=== PATIENT | female | born 1995 | race African-American/Black ===

== ENCOUNTER 2016-09-13 12:55 | Emergency (ER) | payer OTHER ==
[2016-09-13 13:00] VITALS: BMI 31.8
[2016-09-13] MEDS ORDERED: ONDANSETRON 4 MG/2 ML VIAL IVPUSH ONE (17:13)
[2016-09-13] MEDS ORDERED: SODIUM CHLORIDE 1,000 ML IV STA (17:13)
[2016-09-13] MEDS ORDERED: PANTOPRAZOLE SODIUM 40 MG in SODIUM CHLORIDE 100 ML IVPB ONE (17:32)
[2016-09-13] MEDS ORDERED: ONDANSETRON 4 MG/2 ML VIAL ONE (17:35)
[2016-09-13] MEDS ORDERED: PANTOPRAZOLE SODIUM 100 ML IVPB ONE (17:35)
--- NOTE | 2016-09-13 17:40 | PDOC ---
History of Present Illness - General History Source: Patient Exam Limitations: No Limitations - History of Present Illness Travel History: No Initial Comments: 09/13/16 17:07 21-year-old female currently 4 months presents the ED with complaints of epigastric pain and vomiting intermittently since yesterday associated with upper abdominal pain now with headache since this afternoon. Patient states went to [place] yesterday secondary to left molar pain which she was told to take Tylenol for. Patient denies difficulty swallowing but does complain of nasal congestion, sore throat worsened at night, and cough worsened in the evening hours. Patient has no complaints of diarrhea, dysuria, fever, chills, lower abdominal pain, vaginal discharge, or low back pain. Timing/Duration: reports: intermittent Quality: reports: moderate, cramping Abdominal Pain Onset Location: reports: suprapubic (rt) Pain Radiation: reports: no radiation Activities at Onset: reports: none Aggravating Factors: improves with: None Alleviating Factors: improves with: None <Karen Stewart - Last Filed: 09/13/16 18:57> <Vihsal Castillo - Last Filed: 09/14/16 00:30> - General Chief Complaint: Nausea/Vomiting Stated Complaint: VOMITING Time Seen by Provider: 09/13/16 16:22 Past History - Reproductive History Is Patient Now?: Yes - Psycho/Social/Smoking Cessation Hx Suicidal Ideation: No Smoking History: Never smoked Information on smoking cessation initiated: No Patient Lives Alone: No Lives with/in: parents <Karen Stewart - Last Filed: 09/13/16 18:57> <Vishal Castillo - Last Filed: 09/14/16 00:30> - Past Medical History Allergies/Adverse Reactions: Allergies Allergy/AdvReac Type Severity Reaction Status Date / Time No Known Allergies Allergy Verified 09/13/16 13:00 Home Medications: Ambulatory Orders Vit/Iron Fumarate/FA [ Tablet] 1 each PO DAILY 09/13/16 Nitrofurantoin Monohyd/M-Cryst [Macrobid -] 100 mg PO BID #14 capsule 09/14/16 Review of Systems - Review of Systems Able to Perform ROS?: Yes Constitutional: No: Symptoms Reported HEENTM: Yes: Nose Congestion, Throat Pain Respiratory: Yes: Cough. No: Shortness of Breath Cardiac (ROS): No: Symptoms Reported ABD/GI: No: Symptoms Reported : No: Symptoms Reported Integumentary: No: Symptoms Reported Neurological: Yes: Headache (mild frontal). No: Symptoms reported Hematologic/Lymphatic: No: Symptoms Reported <Karen Stewart - Last Filed: 09/13/16 18:57> *Physical Exam - Vital Signs Last Vital Signs Temp Pulse Resp BP Pulse Ox 97.9 F 66 18 135/79 100 09/13/16 12:56 09/13/16 12:56 09/13/16 12:56 09/13/16 12:56 09/13/16 12:56 - Physical Exam General Appearance: Yes: Nourished, Appropriately Dressed. No: Apparent Distress HEENT: positive: EOMI, ANNE, Pharynx Normal, Nasal Congestion (boggy turbinates) , Rhinorrhea (beige bilateral). negative: Pale Conjunctivae, Sinus Tenderness Neck: positive: Supple Respiratory/Chest: positive: Lungs Clear, Normal Breath Sounds. negative: Respiratory Distress, Accessory Muscle Use Cardiovascular: positive: Regular Rhythm, Regular Rate. negative: Murmur Gastrointestinal/Abdominal: positive: Soft, Tenderness (epigastric) Musculoskeletal: negative: CVA Tenderness Extremity: positive: Normal Capillary Refill. negative: Pedal Edema Integumentary: positive: Normal Color, Warm, Moist <Karen Stewart - Last Filed: 09/13/16 18:57> - Vital Signs Last Vital Signs Temp Pulse Resp BP Pulse Ox 97.9 F 66 18 135/79 100 09/13/16 12:56 09/13/16 12:56 09/13/16 12:56 09/13/16 12:56 09/13/16 12:56 <Vishal Castillo - Last Filed: 09/14/16 00:30> Heart Score/ECG Review - ECG Impressions Normal ECG: Yes Non-specific ST Elevation: No Ischemic Changes: No Bradycardia: Yes Torsades neena Pointes: No WPW: No <Vishal Castillo - Last Filed: 09/14/16 00:30> ED Treatment Course - LABORATORY CBC & Chemistry Diagram: 09/13/16 17:15 09/13/16 17:15 <Karen Stewart - Last Filed: 09/13/16 18:57> - LABORATORY CBC & Chemistry Diagram: 09/13/16 17:15 09/13/16 17:15 - ADDITIONAL ORDERS Additional order review: Laboratory Results 09/13/16 17:15 Sodium 136 Potassium 3.7 Chloride 103 Carbon Dioxide 23 Anion Gap 10 BUN 7 Creatinine 0.5 L Creat Clearance w eGFR > 60 Random Glucose 71 L Calcium 8.7 Magnesium 2.0 Total Bilirubin 0.4 AST 14 L ALT 13 Alkaline Phosphatase 59 Total Protein 6.7 Albumin 3.3 L 09/13/16 17:15 Influenza Types A,B Antigen (AKUA) - Final Nasopharyngeal Swab - Final 09/13/16 17:15 RBC 3.98 MCV 97.2 H MCHC 34.1 RDW 14.1 MPV 7.8 Neutrophils % 75.2 Lymphocytes % 18.3 Monocytes % 5.9 Eosinophils % 0.3 Basophils % 0.3 - Medications Given in the ED: ED Medications Discontinued Medications Generic Name Dose Route Start Last Admin Trade Name Freq PRN Reason Stop Dose Admin Sodium Chloride 1,000 mls @ 1,000 mls/hr 09/13/16 17:13 09/13/16 17:32 Normal Saline - IV 09/13/16 18:12 1,000 mls/hr ASDIR STA Administration Pantoprazole Sodium 40 mg/ 100 mls @ 200 mls/hr 09/13/16 17:32 09/13/16 17:39 Sodium Chloride IVPB 09/13/16 18:01 200 mls/hr ONCE ONE Administration Ondansetron HCl 4 mg 09/13/16 17:13 09/13/16 17:39 Zofran Injection IVPUSH 09/13/16 17:14 4 mg ONCE ONE Administration <Vishal Castillo D - Last Filed: 09/14/16 00:30> Progress Note - Progress Note Progress Note: Patient c/o hemoptysis x1 with trouble breathing x 3 weeks. Having difficulty sleeping with severe chest pains. Would like to stay in hospital to make sure everything is okay. Plan: draw D-Dimer. ?? Chest X-ray. Patient reports feeling much better. EKG-Normal, Chest X-ray normal. D-Dimer elevated twice normal range which is normal in . Patient in room eating. 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 <Vishal Castillo D - Last Filed: 09/14/16 00:30> Medical Decision Making - Medical Decision Making 09/13/16 16:28 Pt with upper abdominal pain, nausea, headache, and cough for the past 2 days. Patient denies fever, chills, vaginal discharge, lower abdominal pain, or low back pain. Patient on exam had epigastric tenderness with otherwise a normal clinical exam. Patient will be checked for influenza. 09/13/16 17:51 Laboratory Tests 09/13/16 09/13/16 17:15 17:15 WBC 7.9 Hgb 13.2 Hct 38.7 Neutrophils % 75.2 AST Pending ALT Pending 09/13/16 18:57 Laboratory Tests 09/13/16 09/13/16 17:15 17:15 WBC 7.9 Hgb 13.2 Hct 38.7 Neutrophils % 75.2 Sodium 136 Potassium 3.7 Chloride 103 Carbon Dioxide 23 Anion Gap 10 BUN 7 Creatinine 0.5 L Random Glucose 71 L Calcium 8.7 Magnesium 2.0 Albumin 3.3 L influenza negative. patient's glucose 71. D5 N S ordered. Will check BGM prior to discharge <Karen Stewart - Last Filed: 09/13/16 18:57> *DC/Admit/Observation/Transfer <Karen Stewart - Last Filed: 09/13/16 18:57> - Discharge Dispostion Admit: No <Vishal Castillo - Last Filed: 09/14/16 00:30> Diagnosis at time of Disposition: Qualifiers: Weeks of gestation: 12 weeks Qualified Code(s): Z3A.12 - 12 weeks gestation of GERD (gastroesophageal reflux disease) Qualifiers: Esophagitis presence: without esophagitis Qualified Code(s): K21.9 - Gastro- esophageal reflux disease without esophagitis - Discharge Dispostion Disposition: HOME Condition at time of disposition: Improved - Prescriptions Prescriptions: Nitrofurantoin Monohyd/M-Cryst [Macrobid -] 100 mg PO BID #14 capsule - Patient Instructions Printed Discharge Instructions: A Survival Guide for Men, Medications and , Weight Gain During , DI for Urinary Tract Infection (UTI) Additional Instructions: FOLLOW UP WITH YOUR C D STILL OPERATOR THIS WEEK. CALL TO SCHEDULE APPOINTMENT. AVOID SODA, SUGARY FOODS, SPICY FOODS, GREASY FOODS BEST YOU CAN. DRINK PLENTY WATER. RETURN IF SYMPTOMS WORSEN OR ANY CONCERNS FOR FURTHER EVALUATION. Print Language: SETSWANA
[2016-09-13 17:45] LABS: BASOPHIL 0.3 % (0-2.0); EOSINOPHIL 0.3 % (0-4.5); MCH 33.1 pg (25.7-33.7); MCHC 34.1 g/dl (32.0-36.0); MEAN CELL VOLUME 97.2 fl (80-96); MEAN PLT VOLUME 7.8 fl (7.5-11.1); NEUTROPHILS 75.2 % (42.8-82.8); PLATELET COUNT 214 K/MM3 (134-434); RDW 14.1 % (11.6-15.6); WHITE BLOOD COUNT 7.9 K/mm3 (4.0-10.0)
[2016-09-13 18:10] LABS: ALBUMIN 3.3 g/dl (3.4-5.0); ANION GAP 10 (8-16); CALCIUM 8.7 mg/dL (8.5-10.1); CO2 23 mmol/L (21-32); CREATININE 0.5 mg/dL (0.55-1.02); GLUCOSE,RANDOM 71 mg/dL (74-106); SGOT/AST 14 U/L (15-37); SGPT/ALT 13 U/L (12-78)
[2016-09-13 18:12] LABS: ALK PHOS 59 U/L (45-117); BILIRUBIN,TOTAL 0.4 mg/dL (0.2-1.0); TOT PROT 6.7 g/dl (6.4-8.2)
[2016-09-13] MEDS ORDERED: DEXTROSE 5%-NORMAL SALINE 1,000 ML IV SCH (19:00)
[2016-09-13 20:21] LABS: URINE APPEARANCE SLCLOUDY; URINE BILIRUBIN NEGATIVE (NEGATIVE); URINE BLOOD NEGATIVE (NEGATIVE); URINE COLOR YELLOW; URINE GLUCOSE (UA) NEGATIVE (NEGATIVE); URINE KETONE 2+ (NEGATIVE); URINE NITRITE NEGATIVE (NEGATIVE); URINE UROBILINOGEN NEGATIVE E.U./dl (0.2-1.0)
[2016-09-13 20:38] LABS: URINE LEUK ESTERASE 3+ (NEGATIVE); URINE PROTEIN 1+ (NEGATIVE)
[2016-09-13 20:41] LABS: URINE BACTERIA RARE /hpf (NONE SEEN); URINE MUCUS MANY; URINE RBC 5 /hpf (0-3); URINE WBC 35 /hpf (3-5)
[2016-09-13 21:19] VITALS: TEMP 98.6
[2016-09-13 22:51] VITALS: BP 126/74; PULSE 60
[2016-09-14] MEDS ORDERED: NITROFURANTOIN MACROCRYSTAL 50 MG CAPSULE (FP) PO SCH (00:30)
[2016-09-14] MEDS ORDERED: NITROFURANTOIN MACROCRYSTAL 50 MG CAPSULE (FP) ONE (00:44)
--- NOTE | 2016-09-14 15:23 | EKG ---
Test Reason : Blood Pressure : / mmHG Vent. Rate : 056 BPM Atrial Rate : 056 BPM P-R Int : 186 ms QRS Dur : 100 ms QT Int : 448 ms P-R-T Axes : 042 052 046 degrees QTc Int : 432 ms SINUS BRADYCARDIA NONSPECIFIC T WAVE ABNORMALITY ABNORMAL ECG NO PREVIOUS ECGS AVAILABLE Confirmed by PENNY JERNIGAN MD ([id number]) on 09/14/2016 3:23:04 PM Referred By: Confirmed By:PENNY JERNIGAN MD
== END 2016-09-14 00:46 | disposition home or self-care (01) ==
LOC: JER 12:55
PROC: 3E0337Z Introduction of Electrolytic and Water Balance Substance into Peripheral Vein, Percutaneous Approach (ICD-10-PCS; principal; 2016-09-13)
PROC: 3E033GC Introduction of Other Therapeutic Substance into Peripheral Vein, Percutaneous Approach (ICD-10-PCS; 2016-09-13)
DX: O99.89 Other specified diseases and conditions complicating pregnancy, childbirth and the puerperium (principal); K21.9 Gastro-esophageal reflux disease without esophagitis; Z3A.12 12 weeks gestation of pregnancy
CPT/HCPCS: 36415; 71020-TC; 80053; 81003; 81015; 83735; 85025; 85379; 87086; 87804; 93005; 93010; 99285-25

== ENCOUNTER 2016-11-12 09:20 | Emergency (ER) | payer OTHER ==
[2016-11-12 09:39] VITALS: BP 126/75; PULSE 71; TEMP 98.1; BMI 34.9
--- NOTE | 2016-11-12 09:50 | PDOC ---
History of Present Illness - General History Source: Patient, Old Records Exam Limitations: No Limitations <Jayashree Hodge - Last Filed: 11/12/16 15:36> <Brian Minaya - Last Filed: 11/12/16 15:40> - General Chief Complaint: Chest Pain Stated Complaint: CHEST PAIN Time Seen by Provider: 11/12/16 09:46 - History of Present Illness Initial Comments: 11/12/16 11:04 The patient is a 21 year old female (A1;currently approximately 29 weeks ), with no significant past medical history, who presents to the emergency department with intermittent midsternal chest pain since this morning. The patient describes the pain as a sharp, stabbing pain and notes that the pain is exacerbated when sitting up and by movement. She reports that lying down somewhat alleviates the pain. She additionally reports some mild associated shortness of breath. Patient endorses that when she ambulates quickly the pain seems worse. The patient denies diaphoresis or palpitations. The patient denies fever, chills, headache, cough or any recent illnesses. The patient denies nausea, vomiting, diarrhea, abdominal pain or dysuria. The patient denies any abdominal cramping or any vaginal bleeding. The patient denies any lower extremity pain or swelling. Allergies: Penicillins, [place]. Past Surgical History: None reported. Family History: Diabetes, possible Blood Clots (paternal aunt). Social History: Non smoker. Denies alcohol or drug use. OBGYN: @ [facility] Perinatologist: Dr. Hernandez (Jayashree Hodge) Past History <Jayashree Hodge - Last Filed: 11/12/16 15:36> - Past Medical History Other medical history: 29 WEEKS - Psycho/Social/Smoking Cessation Hx Suicidal Ideation: No Smoking History: Never smoked Hx Alcohol Use: No Drug/Substance Use Hx: No <Brian Minaya - Last Filed: 11/12/16 15:40> - Past Medical History Allergies/Adverse Reactions: Allergies Allergy/AdvReac Type Severity Reaction Status Date / Time Penicillins Allergy Verified 11/12/16 09:39 Home Medications: Ambulatory Orders Vit/Iron Fumarate/FA [ Tablet] 1 each PO DAILY 09/13/16 Review of Systems - Review of Systems Able to Perform ROS?: Yes <Jayashree Hodge - Last Filed: 11/12/16 15:36> <Brian Minaya - Last Filed: 11/12/16 15:40> - Review of Systems Comments:: 11/12/16 11:05 CONSTITUTIONAL: No reported: Fever, Chills, Diaphoresis, Generalized Weakness, Malaise, Loss of Appetite HEENT: No reported: Rhinorrhea, Nasal Congestion, Throat Pain, Throat Swelling, Difficulty Swallowing, Mouth Swelling, Ear Pain, Eye Pain, Visual Changes CARDIOVASCULAR: Reported: +Chest Pain No reported: Syncope, Palpitations, Irregular Heart Rate, Lightheadedness, Peripheral Edema RESPIRATORY: Reported: +Shortness of Breath No reported: Cough, Orthopnea, Wheezing, Stridor, Hemoptysis GASTROINTESTINAL: No reported: Abdominal pain, Abdominal Distension, Nausea, Vomiting, Diarrhea, Constipation, Melena, Hematochezia GENITOURINARY: No reported: Dysuria, Frequency, Urgency, Hesitancy, Flank Pain, Genital Pain MUSCULOSKELETAL: No reported: Myalgia, Arthralgia, Joint Swelling, Back pain, Neck Pain SKIN: No reported: Rash, Itching, Pallor HEMATOLOGIC/IMMUNOLOGIC: No reported: Easy Bleeding, Easy Bruising, Lymphadenopathy, Frequent infections ENDOCRINE: No reported: Unexplained Weight Gain, Unexplained Weight Loss, Heat Intolerance , Cold Intolerance NEUROLOGIC: No reported: Headache, Focal Weakness, Paresthesias, Vertigo, Lightheadedness, Unsteady Gait, Seizure, Mental Status Changes, Incontinence PSYCHIATRIC: No reported: Anxiety, Depression (Jayashree Hodge) *Physical Exam <Jayashree Hodge - Last Filed: 11/12/16 15:36> <Brian Minaya - Last Filed: 11/12/16 15:40> - Vital Signs Last Vital Signs Temp Pulse Resp BP Pulse Ox 98.1 F 71 18 126/75 99 11/12/16 09:35 11/12/16 09:35 11/12/16 09:35 11/12/16 09:35 11/12/16 09:35 - Physical Exam Comments: 11/12/16 11:05 GENERAL: The patient is awake, alert, and fully oriented, nontoxic - in no acute distress. HEAD: Normocephalic, atraumatic. EYES: Extraocular movements intact, sclera anicteric, conjunctiva clear. ENT: Normal voice, moist mucous membranes. NECK: Normal range of motion, supple. LUNGS: Breath sounds equal, clear to auscultation bilaterally. No wheezes, no rhonchi, no rales. HEART: Regular rate and rhythm, without murmur, rub or gallop. ABDOMEN: Gravid abdomen. Soft, nontender, normoactive bowel sounds. No guarding , no rebound. No CVA tenderness EXTREMITIES: +1 non pitting edema, bilaterally. Negative Holmans sign. Normal range of motion. No clubbing or cyanosis. No cords, erythema, or tenderness. NEUROLOGICAL: No facial asymmetry. Normal speech. PSYCH: Normal mood, normal affect. SKIN: Warm, dry, normal turgor. (Jayashree Hodge) Heart Score/ECG Review <Jayashree Hodge - Last Filed: 11/12/16 15:36> <Brian Minaya - Last Filed: 11/12/16 15:40> - ECG Impressions Comment:: 11/12/16 10:58 Twelve-lead EKG was performed and reviewed by me. There is normal sinus rhythm with a normal rate. Rate of 69 The axis is normal. The intervals are normal. There is normal R wave progression There are no ST or T wave abnormalities. Impression: Normal twelve-lead EKG (Brian Minaya) ED Treatment Course - LABORATORY CBC & Chemistry Diagram: 11/12/16 10:20 11/12/16 10:20 <Jayashree Hodge - Last Filed: 11/12/16 15:36> - LABORATORY CBC & Chemistry Diagram: 11/12/16 10:20 11/12/16 10:20 <Brian Minaya - Last Filed: 11/12/16 15:40> - ADDITIONAL ORDERS Additional order review: Laboratory Results 11/12/16 11/12/16 11/12/16 10:20 10:20 10:20 D-Dimer 939 H Sodium 136 Potassium 4.0 Chloride 103 Carbon Dioxide 25 Anion Gap 8 BUN 8 Creatinine 0.5 L Creat Clearance w eGFR > 60 Random Glucose 70 L Calcium 8.9 Total Bilirubin 0.2 D AST 16 ALT 10 L D Alkaline Phosphatase 69 Creatine Kinase 144 Troponin I < 0.02 B-Natriuretic Peptide 83.87 Total Protein 6.2 L Albumin 3.0 L Urine Color Yellow Urine Appearance Turbid Urine pH 8.0 D Ur Specific [place] 1.014 Urine Protein Negative Urine Glucose (UA) Negative Urine Ketones Negative Urine Blood Negative Urine Nitrite Negative Urine Bilirubin Negative Urine Urobilinogen Negative Ur Leukocyte Esterase Trace H D Urine RBC 4 Urine WBC 13 Ur Epithelial Cells Rare Urine Mucus Rare Urine HCG, Qual Positive 11/12/16 10:20 RBC 3.78 MCV 99.8 H MCHC 33.7 RDW 14.1 MPV 8.1 Neutrophils % 69.6 Lymphocytes % 20.7 Monocytes % 8.8 Eosinophils % 0.5 Basophils % 0.4 - RADIOLOGY Radiology Studies Ordered: Category Date Time Status CHEST CTA [CT] Stat CT Scan 11/12/16 11:37 Completed Medical Decision Making <Jayashree Hodge - Last Filed: 11/12/16 15:36> <Brian Minaya - Last Filed: 11/12/16 15:40> - Medical Decision Making 11/12/16 15:36 EXAM: CT/CHEST CTA Reviewed By: Dr. Silas Ashraf IMPRESSION: Limited CTA of the chest with no evidence of pulmonary embolism or acute pathology. (Jayashree Hodge) 11/12/16 10:01 21F A1 at approx 29weeks gestation presents with sudden onset of chest pain this morning associated with intermittent sob, without associated leg swelling. Pt does have possible history of aunt on fathers side with blood clot. differential for the pts symptoms includes PE, although rare, pt is . pts vitals are normal which is reasssuring. will send screening d-dimer - if positiv will consider further imaging. will obtain ekg will reassess A portion of this note was documented by scribe services under my direction. I have reviewed the details of the note, within reason, and agree with the documentation with the following case summary and management plan written by me 11/12/16 11:32 dimer elevated to 900s case dw dr. Krishna - recommend CTA vs. VQ scan will obtain CTA - had extensive discussion with the ptient regarding risks and benefiit with the patient of radiation exposure to the fetus - she agrees to obtaining th eCTA. 11/12/16 15:31 pts CTA is negative for PE. 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 her pain is substantially improved, denies any sob. The patient's vitals were unremarkable return precautions were discussed I discussed the physical exam findings, ancillary test results and final diagnoses with the patient. I answered all of the patient's questions. The patient was satisfied with the care received and felt comfortable with the discharge plan and treatment plan. The patient will call their primary care physician within 24 hours to arrange follow-up and will return to the Emergency Department with any new, persistent or worsening symptoms. (Brian Minaya) *DC/Admit/Observation/Transfer <Jayashree Hodge - Last Filed: 11/12/16 15:36> - Discharge Dispostion Admit: No <Brian Minaya - Last Filed: 11/12/16 15:40> Diagnosis at time of Disposition: Chest pain Qualifiers: Chest pain type: unspecified Qualified Code(s): R07.9 - Chest pain, unspecified Qualifiers: Weeks of gestation: 29 weeks Qualified Code(s): Z3A.29 - 29 weeks gestation of - Discharge Dispostion Disposition: HOME Condition at time of disposition: Improved - Referrals Referrals: Tarik Cooley [Primary Care Provider] - - Patient Instructions Printed Discharge Instructions: DI for Atypical Chest Pain Additional Instructions: Return to the emergency department immediately with ANY new, persistent or worsening symptoms. You MUST call and follow up with your doctor tomorrow for further evaluation of your symptoms. Results were discussed with you. Please make sure your doctor reviews the results of your emergency evaluation. If you had any xrays during your visit, it was read preliminarily by myself, a Radiologist will review it and if there are any additional findings we will call you. Print Language: BURMESE - Attestations Scribe Attestion: 11/12/16 10:10 Documentation prepared by Jayashree Hodge, acting as medical records assistant for Brian Minaya MD. (Jayashree Hodge)
[2016-11-12 10:40] LABS: BASOPHIL 0.4 % (0-2.0); EOSINOPHIL 0.5 % (0-4.5); MCH 33.6 pg (25.7-33.7); MCHC 33.7 g/dl (32.0-36.0); MEAN CELL VOLUME 99.8 fl (80-96); MEAN PLT VOLUME 8.1 fl (7.5-11.1); NEUTROPHILS 69.6 % (42.8-82.8); PLATELET COUNT 159 K/MM3 (134-434); RDW 14.1 % (11.6-15.6); WHITE BLOOD COUNT 8.2 K/mm3 (4.0-10.0)
[2016-11-12 10:43] LABS: URINE APPEARANCE TURBID; URINE BILIRUBIN NEGATIVE (NEGATIVE); URINE BLOOD NEGATIVE (NEGATIVE); URINE COLOR YELLOW; URINE GLUCOSE (UA) NEGATIVE (NEGATIVE); URINE KETONE NEGATIVE (NEGATIVE); URINE NITRITE NEGATIVE (NEGATIVE); URINE PROTEIN NEGATIVE (NEGATIVE); URINE UROBILINOGEN NEGATIVE E.U./dl (0.2-1.0)
[2016-11-12 11:04] LABS: ANION GAP 8 (8-16); BILIRUBIN,TOTAL 0.2 mg/dL (0.2-1.0); CALCIUM 8.9 mg/dL (8.5-10.1); CO2 25 mmol/L (21-32); CREATININE 0.5 mg/dL (0.55-1.02); GLUCOSE,RANDOM 70 mg/dL (74-106); SGOT/AST 16 U/L (15-37); SGPT/ALT 10 U/L (12-78)
[2016-11-12 11:05] LABS: URINE LEUK ESTERASE TRACE (NEGATIVE)
[2016-11-12 11:09] LABS: ALK PHOS 69 U/L (45-117); TOT PROT 6.2 g/dl (6.4-8.2); TROPONIN I < 0.02 ng/ml (0.00-0.05)
[2016-11-12 11:35] LABS: URINE MUCUS RARE; URINE RBC 4 /hpf (0-3); URINE WBC 13 /hpf (3-5)
--- NOTE | 2016-11-13 17:09 | EKG ---
Test Reason : Blood Pressure : / mmHG Vent. Rate : 069 BPM Atrial Rate : 069 BPM P-R Int : 184 ms QRS Dur : 090 ms QT Int : 400 ms P-R-T Axes : 026 031 029 degrees QTc Int : 428 ms NORMAL SINUS RHYTHM NORMAL ECG WHEN COMPARED WITH ECG OF 13-SEP-2016 23:56, NO SIGNIFICANT CHANGE WAS FOUND Confirmed by JOSE RODRIGUEZ MD ([id number]) on 11/13/2016 5:09:28 PM Referred By: Confirmed By:JOSE RODRIGUEZ MD
== END 2016-11-12 15:55 | disposition home or self-care (01) ==
LOC: JER 09:20
DX: O99.89 Other specified diseases and conditions complicating pregnancy, childbirth and the puerperium (principal); R07.89 Other chest pain; Z3A.29 29 weeks gestation of pregnancy
CPT/HCPCS: 36415; 71275-TC; 80053; 81003; 81015; 82550; 83880; 84484; 84703; 85025; 85379; 93005; 93010; 99281-25

== ENCOUNTER 2017-02-03 09:20 | Inpatient (IN) | payer OTHER ==
[2017-02-03] MEDS ORDERED: PROMETHAZINE HCL 25 MG/1 ML VIAL IVPUSH ONE (10:18)
[2017-02-03] MEDS ORDERED: DEXTROSE 5%-LACTATED RINGERS 1,000 ML IV SCH (10:30)
--- NOTE | 2017-02-03 10:35 | HP ---
Past Medical History - Primary Care Physician PCP:: Laura Kong - Admission Chief Complaint: 22 yrs , 40,4 weeks by dates & sono is admitted for induction of labor History of Present Illness: PNC at [facility] . last visit in 10/2016. 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 No : HTN, Murmur Pulmonary: No: Asthma Gastrointestinal: Yes: Constipation. No: Gastritis Hepatobiliary: No: Hepatitis B Renal/: No: UTI ...: 3 ...Para: 1 ...Term: 1 (10/19/12 7'14" [facility]) ...Induced : 1 ...LMP: 04/25/16 ... Weeks Gestation by Dates: 40.4 ...EDC by Dates: 01/30/17 ...EDC by Sono: 01/30/17 Heme/Onc: No: Anemia Infectious Disease: Yes: STD's (h/o chlamydia pos in 05/2016) Psych: No: Addictions, Anxiety, Depression, Panic Endocrine: No: Hyperthyroidism, Hypothyroidism - Past Surgical History Past Surgical History: Yes: None Hx Myomectomy: No Hx Transabdominal Cerclage: No - Smoking History Smoking history: Never smoked - Alcohol/Substance Use Hx Alcohol Use: No History of Substance Use: reports: Marijuana Date of Last Use: 11/13/16 Home Medications - Allergies Allergies/Adverse Reactions: Allergies Allergy/AdvReac Type Severity Reaction Status Date / Time deloris Allergy Severe Verified 01/30/17 15:14 Penicillins Allergy Severe Verified 01/30/17 15:14 - Home Medications Home Medications: Ambulatory Orders Vit/Iron Fumarate/FA [ Tablet] 1 each PO DAILY 09/13/16 Physical Exam - Maternity Constitutional: Yes: Well Nourished, No Distress Eyes: Yes: WNL HENT: Yes: WNL, Normocephalic Neck: Yes: WNL Cardiovascular: Yes: WNL Lungs: Clear to auscultation Breast(s): Yes: WNL - Abdominal Exam/OB Fundal Height: 40 Number of Fetuses: Single Presentation: Vertex Contractions: Yes Regularity: Irregular Intensity: Unaware Monitor Mode: External Heart Rate (range): 130-140 Heart Rate Location: [facility] Category: I Accelerations: Uniform Decelerations: None - Vaginal Exam/OB Vaginal Bleediing: No Speculum Exam: No Dilatation (cm): 1-2 Effacement (%): 60 Amniotic Membrane Status: Intact Presentation: Vertex/Position (exam at 10.00AM) Station: -3 - Physical Exam Musculoskeletal: Yes: WNL Extremities: Yes: WNL. No: Calf Tenderness Edema: Yes Edema: LLE: 1+, RLE: 1+ Integumentary: Yes: Tattoos ...Motor Strength: WNL Psychiatric: Yes: WNL, Alert, Oriented - Labs Lab Results: Laboratory Tests 02/03/17 02/03/17 02/03/17 10:15 10:15 10:40 WBC 6.0 Hgb 12.6 Plt Count 154 Neutrophils % 64.5 Lymphocytes % 22.1 INR PTT (Actin FS) Sodium Potassium Chloride Anion Gap BUN Creatinine Random Glucose Urine Protein Negative Urine RBC 2 Urine WBC 10 U Marijuana (THC) Screen Positive Blood Type 02/03/17 02/03/17 02/03/17 10:40 10:40 10:40 WBC Hgb Plt Count Neutrophils % Lymphocytes % INR 1.00 PTT (Actin FS) 25.9 L Sodium 139 Potassium 3.7 Chloride 107 Anion Gap 11 BUN 5 L D Creatinine 0.6 Random Glucose 73 L Urine Protein Urine RBC Urine WBC U Marijuana (THC) Screen Blood Type O POSITIVE Problem List - Problems (1) Post-term , 40-42 weeks of gestation Code(s): O48.0 - POST-TERM (2) Elective induction of labor planned Code(s): TMS8831 - (3) GBS screening not performed Code(s): EEM4864 - Assessment/Plan 22 yrs , 40 4 weeks , non compliant, GBS unknown , for induction of labor Plan cervidil induction , Inserted at 10.50 AM Trial of labor for vaginal delivery
[2017-02-03 10:49] LABS: BASOPHIL 0.4 % (0-2.0); EOSINOPHIL 0.9 % (0-4.5); MCH 33.8 pg (25.7-33.7); MCHC 34.7 g/dl (32.0-36.0); MEAN CELL VOLUME 97.2 fl (80-96); MEAN PLT VOLUME 7.9 fl (7.5-11.1); NEUTROPHILS 64.5 % (42.8-82.8); PLATELET COUNT 154 K/MM3 (134-434); RDW 14.2 % (11.6-15.6)
[2017-02-03] MEDS ORDERED: SODIUM PHOSPHATE/NA BIPHOS 133 ML ENEMA PR ONE (10:51)
[2017-02-03] MEDS ORDERED: DINOPROSTONE 10 MG VAGINAL SUPPOSITORY VG ONE (11:00)
[2017-02-03 11:02] VITALS: BMI 31.3
[2017-02-03 11:05] LABS: ACTIVATED PTT 25.9 SECONDS (26.9-34.4)
[2017-02-03 11:15] LABS: CALCIUM 8.6 mg/dL (8.5-10.1); CREATININE 0.6 mg/dL (0.55-1.02)
[2017-02-03 11:22] LABS: URINE APPEARANCE CLOUDY; URINE BILIRUBIN NEGATIVE (NEGATIVE); URINE BLOOD NEGATIVE (NEGATIVE); URINE COLOR YELLOW; URINE GLUCOSE (UA) NEGATIVE (NEGATIVE); URINE KETONE NEGATIVE (NEGATIVE); URINE NITRITE NEGATIVE (NEGATIVE); URINE PROTEIN NEGATIVE (NEGATIVE); URINE UROBILINOGEN NEGATIVE E.U./dl (0.2-1.0)
[2017-02-03 11:28] LABS: URINE LEUK ESTERASE TRACE (NEGATIVE)
[2017-02-03 11:31] LABS: URINE BACTERIA RARE /hpf (NONE SEEN); URINE MUCUS FEW; URINE RBC 2 /hpf (0-3); URINE WBC 10 /hpf (3-5)
[2017-02-03 12:00] LABS: URINE MARIJUANA THC POSITIVE ng/ml (CUTOFF=50)
[2017-02-03] MEDS ORDERED: BUTORPHANOL TARTRATE 1 MG/ML VIAL IVPB ONE (12:00)
[2017-02-03] MEDS ORDERED: CLINDAMYCIN 900 MG PREMIX IVPB 50 ML IVPB ONE (12:26)
[2017-02-03] MEDS: CLINDAMYCIN 600MG PREMIX IVPB 50 ML IVPB SCH ×3 (12:35→18:30)
[2017-02-03 17:19] LABS: HIV 1 & 2 AB NEGATIVE; HIV 1 AGp24 NEGATIVE
--- NOTE | 2017-02-03 22:38 | PN ---
Progress Note, Labor Vaginal Exam #1 Labor Exam Date: 02/03/17 Labor Exam Time: 22:25 Heart Rate (range): 130- 140 Dilatation: 8 Effacement (%): 90 Amniotic Membrane Status: Ruptured (AROM clear) Presentation: Vertex/Position Station: -1 Remarks: uC q2-3 min. FHR cat-1 21.50 hr cervidil removed 22.00 hr stadol 2 mg + phenrgan 25 mg iv given Selected Entries 02/03/17 21:00 Temperature 98.8 F Pulse Rate 66 Blood Pressure 114/68 pt received 2 doses of clindamycin due to unknown GBS Vaginal Exam #2 Labor Exam Date: 02/03/17 Labor Exam Time: 23:00 Heart Rate (range): 130 Dilatation: 10 Effacement (%): 100 Amniotic Membrane Status: Ruptured Presentation: Vertex/Position Station: +2 Remarks: uc q2-3 min fhr cat-1 pt pushing Selected Entries 02/03/17 22:00 Temperature 98.3 F Pulse Rate 89 Blood Pressure 129/82
[2017-02-03] MEDS: METHYLERGONOVINE MALEATE 0.2 MG/1 ML AMP IM PRN (23:40)
[2017-02-04] MEDS ORDERED: BENZOCAINE 20% 57 GM BOTTLE TP PRN (00:59)
[2017-02-04] MEDS ORDERED: oxyCODONE HCL 5 MG TABLET PO PRN (00:59)
[2017-02-04] MEDS ORDERED: BENZOCAINE 28 GM HEMORRHOIDAL OINTMENT TP PRN (00:59)
[2017-02-04] MEDS ORDERED: WITCH HAZEL 50% (TUCKS) 40 PAD/JAR PAD TP PRN (00:59)
[2017-02-04] MEDS ORDERED: BISACODYL 10 MG SUPP.RECT RC PRN (00:59)
[2017-02-04] MEDS ORDERED: D5W-LR W/ 20 UNITS OXYTOCIN 1,000 ML IV SCH (01:00)
--- NOTE | 2017-02-04 01:06 | PN ---
Delivery - Delivery Vaginal Delivery: No Problems, Spontaneous (uterus post delivery atonic , bimanual massage given bladder cathetrized, meu done blood clots removed, iM Methergine 0.2 mg im given at 23.40 hr 02/03/17) Type of Anesthesia: None Episiotomy/Laceration: None EBL (cc): 400 (st cath 250 ml urine ) Delivery, Single - Stages of Labor Date 1st Stage Initiatied: 02/03/17 Time 1st Stage Initiated: 19:00 Date 2nd Stage Initiated: 02/03/17 Time 2nd Stage Initiated: 23:00 Date of Delivery: 02/03/17 Time of Delivery: 23:23 Time Placenta Delivered: 23:25 Placenta: Yes: Spontaneous, Uterine Exploration - Condition of Infant Chapter Relations Administrator/Certified Neurodiagnostic Technologist Present: No Infant Gender: Male Weight: 7 lb 7 oz Position: Right, OA Total Hours ROM (Hrs/Mins): 1h2m - 1 Minute Total Score: 9 5 Minutes Total Score: 9 - Feeding Plan Initial Plan: Elected not to breastfeed exclusively throughout hospitalization Remarks - Remarks Remarks: 22 yrs , 40.4 weeks iup, GBS unknown, [facility] , non compliant Urine drug screen positive for Marijuana Cervidil induction started 02/03/17 at 10.30 AM stadol 2 gm + Phenergan 25 mg im given for labor analgesia . 2 doses of clindamycin received for Gbs prophylaxis Intrapartum course uneventful
[2017-02-04] MEDS: ACETAMINOPHEN 325 MG TABLET (FP) PO PRN (01:33)
[2017-02-04] MEDS: IBUPROFEN 600 MG TABLET (FP) PO PRN (01:34)
[2017-02-04] MEDS: CLINDAMYCIN 600MG PREMIX IVPB 50 ML IVPB SCH (02:07)
[2017-02-04] MEDS: METHYLERGONOVINE MALEATE 0.2 MG/1 ML AMP IM PRN (03:15)
[2017-02-04 08:07] LABS: BASOPHIL 0.3 % (0-2.0); EOSINOPHIL 0.3 % (0-4.5); MCH 33.5 pg (25.7-33.7); MCHC 34.2 g/dl (32.0-36.0); MEAN CELL VOLUME 97.8 fl (80-96); MEAN PLT VOLUME 8.9 fl (7.5-11.1); NEUTROPHILS 79.3 % (42.8-82.8); PLATELET COUNT 151 K/MM3 (134-434); RDW 14.1 % (11.6-15.6); WHITE BLOOD COUNT 12.8 K/mm3 (4.0-10.0)
--- NOTE | 2017-02-04 08:42 | PN ---
Post Progress Note - Subjective Subjective: no complains Post Day: 1 Type of Delivery: Vital Signs: Vital Signs Temperature 98.7 F 02/04/17 05:44 Pulse Rate 75 02/04/17 05:44 Respiratory Rate 18 02/04/17 05:44 Blood Pressure 128/60 02/04/17 05:44 O2 Sat by Pulse Oximetry (%) 100 02/04/17 00:30 Breast Exam: Yes: Soft, Other (bottle feeding ). No: Engorged Uterus: Yes: Fundus Firm, Fundus below umbilicus, Non-tender Lochia: Yes: Rubra Lochia, amount: Moderate Extremities: Yes: Calves non-tender, Edema Perineum: Yes: Intact Activity: Ambulating - Labs Labs: CBC WBC 12.8 K/mm3 (4.0-10.0) H D 02/04/17 06:00 RBC 4.02 M/mm3 (3.60-5.2) 02/04/17 06:00 Hgb 13.5 GM/dL (10.7-15.3) 02/04/17 06:00 Hct 39.3 % (32.4-45.2) 02/04/17 06:00 MCV 97.8 fl (80-96) H 02/04/17 06:00 MCHC 34.2 g/dl (32.0-36.0) 02/04/17 06:00 RDW 14.1 % (11.6-15.6) 02/04/17 06:00 Plt Count 151 K/MM3 (134-434) 02/04/17 06:00 MPV 8.9 fl (7.5-11.1) D 02/04/17 06:00 Neutrophils % 79.3 % (42.8-82.8) D 02/04/17 06:00 Lymphocytes % 11.2 % (8-40) D 02/04/17 06:00 Monocytes % 8.9 % (3.8-10.2) 02/04/17 06:00 Eosinophils % 0.3 % (0-4.5) 02/04/17 06:00 Basophils % 0.3 % (0-2.0) 02/04/17 06:00 Problem List - Problems (1) Post-term , 40-42 weeks of gestation Code(s): O48.0 - POST-TERM (2) Elective induction of labor planned Code(s): MOT1943 - (3) GBS screening not performed Code(s): JUO1604 - Assessment/Plan stable Plan ct pp care discharge tomorrow.
[2017-02-04] MEDS: FERROUS SO4 325 MG TABLET (FP) PO SCH ×2 (09:59→18:00)
[2017-02-04] MEDS: PRENATAL VITAMINS W/ FOLIC ACID TABLET (FP) PO SCH (09:59)
[2017-02-04 18:42] VITALS: PULSE 84
[2017-02-05] MEDS: ACETAMINOPHEN 325 MG TABLET (FP) PO PRN (00:32)
[2017-02-05] MEDS: IBUPROFEN 600 MG TABLET (FP) PO PRN (00:32)
--- NOTE | 2017-02-05 07:06 | PN ---
Post Progress Note Post Day: 2 Type of Delivery: Vital Signs: Vital Signs Temperature 98.2 F 02/04/17 21:06 Pulse Rate 84 02/04/17 21:06 Respiratory Rate 20 02/04/17 21:06 Blood Pressure 120/76 02/04/17 21:06 O2 Sat by Pulse Oximetry (%) 100 02/04/17 00:30 Breast Exam: Yes: Soft Uterus: Yes: Fundus Firm Abdomen/GI: Yes: Abdomen soft Lochia: Yes: Rubra Lochia, amount: Small Extremities: Yes: Calves non-tender Perineum: Yes: Intact Activity: Ambulating - Labs Labs: CBC WBC 12.8 K/mm3 (4.0-10.0) H D 02/04/17 06:00 RBC 4.02 M/mm3 (3.60-5.2) 02/04/17 06:00 Hgb 13.5 GM/dL (10.7-15.3) 02/04/17 06:00 Hct 39.3 % (32.4-45.2) 02/04/17 06:00 MCV 97.8 fl (80-96) H 02/04/17 06:00 MCHC 34.2 g/dl (32.0-36.0) 02/04/17 06:00 RDW 14.1 % (11.6-15.6) 02/04/17 06:00 Plt Count 151 K/MM3 (134-434) 02/04/17 06:00 MPV 8.9 fl (7.5-11.1) D 02/04/17 06:00 Neutrophils % 79.3 % (42.8-82.8) D 02/04/17 06:00 Lymphocytes % 11.2 % (8-40) D 02/04/17 06:00 Monocytes % 8.9 % (3.8-10.2) 02/04/17 06:00 Eosinophils % 0.3 % (0-4.5) 02/04/17 06:00 Basophils % 0.3 % (0-2.0) 02/04/17 06:00 Assessment/Plan doing well no issues dc home today
[2017-02-05] MEDS ORDERED: DIPHTH,PERTUSS(ACELL),TET 0.5 ML DISP.SYRIN IM ONE (10:00)
[2017-02-05] MEDS: FERROUS SO4 325 MG TABLET (FP) PO SCH (11:03)
[2017-02-05] MEDS: PRENATAL VITAMINS W/ FOLIC ACID TABLET (FP) PO SCH (11:03)
[2017-02-05 11:19] VITALS: BP 124/76; TEMP 98.3
--- NOTE | 2017-02-05 18:12 | DS ---
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 Vital Signs: Vital Signs Temperature 98.3 F 02/05/17 10:00 Pulse Rate 84 02/05/17 10:00 Respiratory Rate 20 02/05/17 10:00 Blood Pressure 124/76 02/05/17 10:00 O2 Sat by Pulse Oximetry (%) 100 02/04/17 00:30 Constitutional: Yes: Well Nourished Eyes: Yes: WNL HENT: Yes: WNL Neck: Yes: WNL Cardiovascular: Yes: WNL Respiratory: Yes: WNL Gastrointestinal: Yes: WNL, Normal Bowel Sounds ...Rectal Exam: Yes: WNL Renal/: Yes: WNL Pelvis: Yes: WNL External Genitalia: Yes: Normal ....Post : Yes: Uterus firm, Uterus non-tender, Moderate lochia rubra ( perineum intact) Breast(s): Yes: WNL (Bf) Musculoskeletal: Yes: WNL Extremities: Yes: WNL. No: Calf Tenderness Edema: Yes Edema: LLE: 1+, RLE: 1+ Integumentary: Yes: Tattoos Neurological: Yes: WNL, Alert, Oriented ...Motor Strength: WNL Psychiatric: Yes: WNL, Alert, Oriented Labs: CBC, BMP 02/04/17 06:00 02/03/17 10:40 Delivery - Delivery Vaginal Delivery: No Problems, Spontaneous (uterus post delivery atonic , bimanual massage given bladder cathetrized, meu done blood clots removed, iM Methergine 0.2 mg im given at 23.40 hr 02/03/17) Type of Anesthesia: None Episiotomy/Laceration: None EBL (cc): 400 (st cath 250 ml urine ) Delivery, Single - Stages of Labor Date 1st Stage Initiatied: 02/03/17 Time 1st Stage Initiated: 19:00 Date 2nd Stage Initiated: 02/03/17 Time 2nd Stage Initiated: 23:00 Date of Delivery: 02/03/17 Time of Delivery: 23:23 Time Placenta Delivered: 23:25 Placenta: Yes: Spontaneous, Uterine Exploration - Condition of Infant Scheduling Coordinator/Shaving Machine Operator Present: No Infant Gender: Male Weight: 7 lb 7 oz Position: Right, OA Total Hours ROM (Hrs/Mins): 1h2m - 1 Minute Total Score: 9 5 Minutes Total Score: 9 - Feeding Plan Initial Plan: Elected not to breastfeed exclusively throughout hospitalization Remarks - Remarks Remarks: 22 yrs , 40.4 weeks iup, GBS unknown, [facility] , non compliant Urine drug screen positive for Marijuana Cervidil induction started 02/03/17 at 10.30 AM stadol 2 gm + Phenergan 25 mg im given for labor analgesia . 2 doses of clindamycin received for Gbs prophylaxis Intrapartum course uneventful stable plan discharge on 02/05/17 Discharge Summary Reason For Visit: INDUCTION OF LABOR Current Active Problems Elective induction of labor planned (Acute) GBS screening not performed (Acute) Normal spontaneous vaginal delivery (Acute) Post-term , 40-42 weeks of gestation (Acute) Substance abuse affecting , antepartum (Acute) Condition: Stable - Instructions Diet, Activity, Other Instructions: Post Instructions DIET: Continue good diet high in protein, calcium, and iron rich foods. Drink at least eight (8) glasses of water daily in addition to other fluids. Ct Regular diet MEDICATIONS: Continue vitamins and iron as previously directed. Motrin and Tylenol may be taken for minor discomfort. ACTIVITY: Mild to moderate exercise may be started in two (2) weeks. Take frequent rest periods. Resume normal activity after six (6) week check up. WOUND CARE OF OPERATIVE SITE: Continue use of perineal bottle until vaginal discharge stops. Keep area clean. Shower daily. Keep abdominal wound dry. Report any drainage or redness to physician. Tub baths, tampons and douches are not permitted for [address] Breast feeding & or Bottle feeding BREAST CARE: (For those that are not breast feeding): If engorgement occurs: Wear tight fitting bra. Take Tylenol or Motrin for pain. Apply cold packs (ice in bags to each breast ) FAMILY PLANNING: There are many control alternatives to pursue and they should be discussed at your first office visit. You may resume sexual activity after your six (6) week check up. (Remember, breast feeding is not a contraceptive) NEXT PHYSICIAN APPOINTMENT: Be certain to call for a six (6) week appointment, unless otherwise directed. Call Clinic or got to Emergency Dept if you have any of the following: Heavy vaginal bleeding Painful urination Leg pain Unusual odor noted to vaginal bleeding High fever Red streaking noted on breast Referrals: Laura Kong MD [Staff Physician] - Disposition: HOME - Home Medications Comprehensive Discharge Medication List: Ambulatory Orders Vit/Iron Fumarate/FA [ Tablet] 1 each PO DAILY 09/13/16 Acetaminophen [Tylenol .Regular Strength -] 650 mg PO Q3H PRN #0 tablet Ibuprofen [Motrin -] 200 mg PO Q4H PRN #0 tablet 02/04/17 Vitamins ([facility]) - 1 tab PO DAILY tablet 02/04/17
[2017-02-05] MEDS ORDERED: SENNOSIDES/DOCUSATE COMBO (SENNA PLUS) TABLET (UD) PO PRN (22:00)
== END 2017-02-05 12:30 | disposition home or self-care (01) | DRG 560 ==
LOC: JDEL 09:20 → JLDR 09:50 → J3W 02-04 01:10
PROVIDERS: ADMIT Obstetrics & Gynecology; ATTEND Obstetrics & Gynecology
PROC: 10E0XZZ Delivery of Products of Conception, External Approach (ICD-10-PCS; principal; 2017-02-03)
PROC: 3E0P7GC Introduction of Other Therapeutic Substance into Female Reproductive, Via Natural or Artificial Opening (ICD-10-PCS; 2017-02-03)
DX: O48.0 Post-term pregnancy (principal); Z3A.40 40 weeks gestation of pregnancy; O99.324 Drug use complicating childbirth; F12.10 Cannabis abuse, uncomplicated; Z37.0 Single live birth
CPT/HCPCS: 36415; 59409; 80048; 80307; 81003; 81015; 85025; 85610; 85730; 86593; 86850; 86900; 86901; 87389; 90715

== ENCOUNTER 2021-12-04 09:42 | Emergency (ER) | payer OTHER ==
[2021-12-04 10:10] VITALS: BP 95/65; PULSE 77; TEMP 98.3; BMI 26.6
[2021-12-04] MEDS ORDERED: ONDANSETRON 4 MG/2 ML VIAL IVPUSH ONE (10:47)
[2021-12-04] MEDS ORDERED: SODIUM CHLORIDE 0.9% 500 ML INFUS.BAG IV ONE ×2 (10:47)
[2021-12-04] MEDS ORDERED: ONDANSETRON 4 MG/2 ML VIAL ONE (12:15)
[2021-12-04] MEDS ORDERED: ACETAMINOPHEN 1000 MG/100 ML BAG IVPB ONE (12:27)
[2021-12-04] MEDS ORDERED: ACETAMINOPHEN INJECTION 100 ML IVPB ONE (12:34)
[2021-12-04 12:48] LABS: EPI CELLS 31 /uL (0-25.1); HYALINE CASTS 1 /uL (0-3.1); URINE APPEARANCE CLEAR; URINE BACTERIA 536 /uL (0-1359); URINE BILIRUBIN NEGATIVE (NEGATIVE); URINE COLOR DK YELLOW; URINE GLUCOSE (UA) NEGATIVE (NEGATIVE); URINE KETONE 3+ (NEGATIVE); URINE LEUK ESTERASE NEGATIVE (NEGATIVE); URINE NITRITE NEGATIVE (NEGATIVE); URINE PROTEIN 1+ (NEGATIVE); URINE RBC 16 /uL (0-23.9); URINE WBC 9 /uL (0-25.8)
[2021-12-04 12:50] LABS: BASO % 0.5 % (0-2.0); HEMATOCRIT 41.3 % (32.4-45.2); HEMOGLOBIN 14.3 GM/dL (10.7-15.3); LYMPH % 12.1 % (8-40); MCH 33.6 pg (25.7-33.7); MCHC 34.6 g/dl (32.0-36.0); MEAN CELL VOLUME 97.2 fl (80-96); MEAN PLT VOLUME 7.8 fl (7.5-11.1); MONO % 14.9 % (3.8-10.2); NEUT % 72.5 % (42.8-82.8); PLATELET COUNT 172 10^3/uL (134-434); RBC 4.24 M/mm3 (3.60-5.2); RDW 14.1 % (11.6-15.6)
[2021-12-04 13:19] LABS: ALBUMIN 3.5 g/dl (3.4-5.0); CALCIUM 8.7 mg/dL (8.5-10.1)
[2021-12-04 13:20] LABS: BLOOD UREA NITROGEN 6.4 mg/dL (7-18)
[2021-12-04 13:22] LABS: CREATININE 0.6 mg/dL (0.55-1.3)
[2021-12-04 13:24] LABS: BILIRUBIN,TOTAL 0.3 mg/dL (0.2-1); TOT PROT 6.8 g/dl (6.4-8.2)
== END 2021-12-04 14:14 | disposition home or self-care (01) ==
LOC: JER 09:42
PROC: 3E0333Z Introduction of Anti-inflammatory into Peripheral Vein, Percutaneous Approach (ICD-10-PCS; principal; 2021-12-04)
PROC: 3E033GC Introduction of Other Therapeutic Substance into Peripheral Vein, Percutaneous Approach (ICD-10-PCS; 2021-12-04)
DX: O21.0 Mild hyperemesis gravidarum (principal)
CPT/HCPCS: 36415; 80053; 81003; 85025; 87086; 99284-25

== ENCOUNTER 2023-04-25 09:13 | Inpatient (IN) | payer OTHER ==
[2023-04-25] MEDS ORDERED: PROMETHAZINE HCL 25 MG/1 ML VIAL IVPB ONE (09:52)
[2023-04-25] MEDS ORDERED: BUTORPHANOL TARTRATE 1 MG/ML VIAL IVPUSH PRN (09:52)
[2023-04-25] MEDS ORDERED: OXYTOCIN 30 UNITS in 0.9% NS 30 UNIT/500 ML INFUS.BAG IVPB SCH (10:00)
[2023-04-25 10:33] VITALS: BMI 38.5
[2023-04-25] MEDS: ELECTROLYTE-148 SOLN 1,000 ML IV SCH ×2 (10:34→17:52)
[2023-04-25] MEDS ORDERED: OXYTOCIN 30 UNITS in 0.9% NS 30 UNIT/500 ML INFUS.BAG IVPB ONE (10:44)
[2023-04-25 11:21] LABS: BASO % 0.4 % (0-2.0); EOS % 0.9 % (0-4.5); HEMATOCRIT 36.6 % (32.4-45.2); HEMOGLOBIN 12.4 GM/dL (10.7-15.3); LYMPH % 19.2 % (8-40); MCH 33.8 pg (25.7-33.7); MCHC 33.9 g/dl (32.0-36.0); MEAN CELL VOLUME 99.8 fl (80-96); MEAN PLT VOLUME 8.3 fl (7.5-11.1); MONO % 8.1 % (3.8-10.2); NEUT % 71.4 % (42.8-82.8); PLATELET COUNT 146 10^3/uL (134-434); RBC 3.67 M/mm3 (3.60-5.2); RDW 14.3 % (11.6-15.6); WHITE BLOOD COUNT 6.6 K/mm3 (4.0-10.0)
[2023-04-25 11:27] LABS: INR 0.98 (0.83-1.09); PROTHROMBIN TIME (PATIENT) 11.4 SEC (9.7-13.0)
[2023-04-25 11:29] LABS: ACTIVATED PTT 23.8 SECONDS (25.2-36.5)
[2023-04-25 11:40] LABS: POTASSIUM 3.7 mmol/L (3.5-5.1)
[2023-04-25 11:42] LABS: CALCIUM 8.4 mg/dL (8.5-10.1)
[2023-04-25 11:46] LABS: CREATININE 0.6 mg/dL (0.55-1.3)
[2023-04-25] MEDS ORDERED: OXYTOCIN 20 UNITS in 0.9% NS 20 UNIT/1,000 ML INFUS.BAG IV ONE (19:12)
[2023-04-25] MEDS ORDERED: PROMETHAZINE HCL 25 MG/1 ML VIAL ONE (21:56)
[2023-04-25] MEDS ORDERED: BUTORPHANOL TARTRATE 1 MG/ML VIAL ONE (21:56)
[2023-04-25] MEDS ORDERED: CITRIC ACID/SODIUM CITRATE 30 ML UNIT-DOSE CUP ONE (22:39)
[2023-04-26] MEDS ORDERED: FENTANYL/BUPIVACAINE/NS/PF - PCEA - 50 ML DISP.SYRIN EP ONE (01:44)
[2023-04-26] MEDS ORDERED: NALOXONE HCL 0.4 MG/ML VIAL IVPUSH PRN (01:48)
[2023-04-26] MEDS ORDERED: LIDO 2%/EPI 1:200000 PRESRVFRE (20 ML SDVIAL) ONE (01:49)
[2023-04-26] MEDS ORDERED: BUPIVACAINE HCL/PF 0.25% (2.5MG/ML) 10 ML VIAL ONE (01:49)
[2023-04-26] MEDS ORDERED: FENTANYL/BUPIVACAINE/NS/PF - PCEA - 50 ML DISP.SYRIN EP SCH (02:00)
[2023-04-26] MEDS ORDERED: ePHEDrine SULFATE 50 MG/1 ML AMPULE ONE (02:07)
[2023-04-26] MEDS ORDERED: SODIUM CHLORIDE 0.9% P/F 10 ML VIAL IJ ONE ×2 (02:08→02:23)
[2023-04-26] MEDS ORDERED: PHENYLEPHRINE HCL 10 MG/1 ML SINGLE DOSE VIAL ONE (02:23)
[2023-04-26] MEDS ORDERED: BENZOCAINE 28 GM HEMORRHOIDAL OINTMENT TP PRN (03:59)
[2023-04-26] MEDS ORDERED: METHYLERGONOVINE MALEATE 0.2 MG/1 ML AMP IM PRN (03:59)
[2023-04-26] MEDS ORDERED: WITCH HAZEL 50% (TUCKS) 40 PAD/JAR PAD TP PRN (03:59)
[2023-04-26] MEDS ORDERED: BISACODYL 10 MG SUPP.RECT RC PRN (03:59)
[2023-04-26] MEDS ORDERED: ACETAMINOPHEN 325 MG TABLET (FP) PO PRN (03:59)
[2023-04-26] MEDS ORDERED: BENZOCAINE 20% 57 GM BOTTLE TP PRN (03:59)
[2023-04-26] MEDS ORDERED: oxyCODONE HCL 5 MG TABLET PO PRN (03:59)
[2023-04-26] MEDS ORDERED: OXYTOCIN 20 UNITS in 0.9% NS 20 UNIT/1,000 ML INFUS.BAG IV SCH (04:00)
[2023-04-26 05:06] LABS: CORD HCO3 16.9 mmHg (20-29); CORD PCO2 33.1 mmHg (30-78); CORD pH 7.325 (7.14-7.44)
[2023-04-26 05:08] LABS: CORD BASE EXCESS -6.9 mmol/L (0-2); CORD HCO3 22.7 mmHg (20-29); CORD PCO2 62.7 mmHg (30-78); CORD pH 7.176 (7.14-7.44)
[2023-04-26] MEDS: IBUPROFEN 600 MG TABLET (FP) PO PRN ×2 (06:00→17:24)
[2023-04-27] MEDS: IBUPROFEN 600 MG TABLET (FP) PO PRN ×4 (03:04→21:21)
[2023-04-27 06:46] LABS: BASO % 0.1 % (0-2.0); EOS % 0.9 % (0-4.5); HEMATOCRIT 32.5 % (32.4-45.2); LYMPH % 17.5 % (8-40); MCH 34.1 pg (25.7-33.7); MCHC 33.7 g/dl (32.0-36.0); MEAN CELL VOLUME 101.3 fl (80-96); MEAN PLT VOLUME 8.8 fl (7.5-11.1); MONO % 9.1 % (3.8-10.2); NEUT % 72.4 % (42.8-82.8); PLATELET COUNT 138 10^3/uL (134-434); RBC 3.21 M/mm3 (3.60-5.2); RDW 14.2 % (11.6-15.6); WHITE BLOOD COUNT 11.4 K/mm3 (4.0-10.0)
[2023-04-27] MEDS ORDERED: SENNOSIDES/DOCUSATE COMBO (SENNA PLUS) TABLET (UD) PO PRN (22:00)
[2023-04-28] MEDS: IBUPROFEN 600 MG TABLET (FP) PO PRN (08:53)
[2023-04-28 11:37] VITALS: BP 129/79; PULSE 96; RESP 17; TEMP 98.7
== END 2023-04-28 12:10 | disposition home or self-care (01) | DRG 560 ==
LOC: JLDR 09:13 → J3W 04-26 05:37
PROVIDERS: ADMIT Obstetrics & Gynecology; ATTEND Obstetrics & Gynecology
PROC: 10E0XZZ Delivery of Products of Conception, External Approach (ICD-10-PCS; principal; 2023-04-26)
DX: O48.0 Post-term pregnancy (principal); Z3A.40 40 weeks gestation of pregnancy; Z37.0 Single live birth
CPT/HCPCS: 36415; 36600; 80048; 82803; 85025; 85610; 85730; 86780; 86850; 86900; 86901